=== PATIENT | male | born 1995 | race Caucasian/White ===

== ENCOUNTER → 2022-10-07 16:57 | Outpatient (CLI) | payer OTHER, SELFPAY ==
--- NOTE | ~2022-10-07 | XR_ITS ---
EXAMINATION: XR thoracic spine 2V DATE: 10/07/2022 17:55 INDICATION: Thoracic spine pain. TECHNIQUE: 2 views of thoracic spine were obtained. COMPARISON: None. FINDINGS: There is 7 degrees dextrocurvature of thoracic spine. There is mild height loss of T6, T9, and T10 vertebral bodies. There is mildly decreased disc height at T5-T6. There are endplate osteophy marina at multiple levels. IMPRESSION: 1. Mild thoracic spondylosis. 2. Mild age-indeterminate compression fractures of T6, T9, and T10 vertebral bodies. Reviewed, dictated and finalized at location A. IMPRESSION: 1. Mild thoracic spondylosis. 2. Mild age-indeterminate compression fractures of T6, T9, and T10 vertebral lori dies.
== END ==
DX: S22.009A Unspecified fracture of unspecified thoracic vertebra, initial encounter for closed fracture (principal); X58.XXXA Exposure to other specified factors, initial encounter
CPT/HCPCS: 72070

== ENCOUNTER 2024-01-15 18:31 | Emergency (ER) | payer OTHER, SELFPAY ==
--- NOTE | 2024-01-15 18:40 | ED.NAVMDI ---
HPI - Nausea/Vomiting/Diarrhea General Chief complaint: Nausea/Vomiting/Diarrhea Stated complaint: Stomach Pains and Vomiting Time Seen by Provider: 01/15/24 18:41 Source: patient Mode of arrival: ambulatory Limitations: no limitations History of Present Illness HPI Narrative: 28-year-old male presents with complaint of intermittent nausea vomiting for the past 2-3 weeks. Patient states he will be fine for a couple days and then all the sudden vomiting again. Has had decreased appetite, has barely a any solid foods for the past 2-3 weeks. Patient reports over the past several days he has had decreased urination. Worsening of nausea and vomiting. Today was vomiting and felt sudden pain to epigastric region. Has had constant pain since. also reports constipation. The only time he is able to have a bowel movement is after taking Dulcolax. Patient is pale. All systems reviewed and negative except as noted above. Related Data Home Medications Medication Instructions Recorded Confirmed lacosamide 200 mg tablet 30 mg PO BID 01/15/24 01/15/24 Allergies Allergy/AdvReac Type Severity Reaction Status Date / Time No Known Allergies Allergy Verified 01/15/24 18:41 Review of Systems Review of Systems: CONSTITUTIONAL: Denies fever, chills, or sweats. Reports fatigue. EYES: Denies visual changes, redness, or discharge. ENT: Denies rhinorrhea, congestion, sore throat, or otalgia. CARDIOVASCULAR: Denies chest pain, palpitations, or edema. RESPIRATORY: Denies cough or dyspnea. GASTROINTESTINAL: Reports epigastric abdominal pain, nausea, vomiting, and constipation GENITOURINARY: Denies dysuria or hematuria. reports decreased urination. SKIN: Denies rash or itching. MUSCULOSKELETAL: Denies back pain, joint pain, or myalgia. NEUROLOGIC: Denies headache, numbness, or weakness. PSYCHIATRIC: Denies anxiety or depression. All other systems reviewed are negative, except as documented in HPI. [facility] Comments At time of signature, agree with nursing past medical, surgical, social and family history. There is no relevant family history pertinent to the presenting complaint. Exam Narrative: GENERAL: patient is ill-appearing, pale, shaky, dark circles under eyes HEAD: normocephalic, atraumatic. EYES: PERRL. Sclera clear/white. Vision is grossly intact. EARS: External ears normal NOSE: External nose normal NECK: Neck supple, non-tender without lymphadenopathy, masses or thyromegaly. CARDIOVASCULAR: Regular rate and rhythm without murmurs, gallops, or rubs. RESPIRATORY: Clear to auscultation. Breath sounds equal bilaterally. No wheezes, rales, or rhonchi. GASTROINTESTINAL: mild distension, epigastric abdominal tenderness on palpation. Bowel sounds are hyperactive. SKIN: warm, Dry, intact with no suspicious lesions or rash, good texture and turgor. NEURO: awake, alert, and oriented to person, place and time. There were no obvious focal neurologic abnormalities. EXTREMITIES: No joint tenderness, effusion, or edema noted. Course Course Level of Care: Express Care Visit Vital Signs Vital signs: Reviewed Transfer Transfered to: [facility] Transportation: Other ( significant other) Transfer rationale: transferring patient to ER for CT scan, labs, IV hydration due to multiple weeks of nausea vomiting, constipation, epigastric tenderness today. Accepting physician: Dr. White Discharge Plan Discharge Clinical Impression: Acute epigastric pain, Nausea & vomiting, Constipation Patient Disposition: Acute Care Hospital Condition: Stable Prescriptions: No Action lacosamide 200 mg tablet 30 mg PO BID Follow-up/Referrals: Violeta Gordon APRN [Primary Care Provider] - Time of Disposition: 18:55
[2024-01-15 18:41] VITALS: BP 112/84; PULSE 126; RESP 16; TEMP 36.8; O2SAT 100
== END 2024-01-15 19:10 | disposition short-term general hospital (02) ==
PROVIDERS: Emergency Provider Nurse Practitioner Family; PCP Nurse Practitioner Family
DX: R10.13 Epigastric pain (principal); R11.2 Nausea with vomiting, unspecified; K59.00 Constipation, unspecified; G40.909 Epilepsy, unspecified, not intractable, without status epilepticus
CPT/HCPCS: 99212; 99215; G0463

== ENCOUNTER 2024-01-15 19:09 | Emergency (ER) | payer OTHER, SELFPAY ==
--- NOTE | ~2024-01-15 | CT_ITS ---
EXAMINATION: CT abdomen pelvis w con DATE: 01/15/2024 21:59 INDICATION: Intermittent abdominal pain. TECHNIQUE: Computed tomography (CT) of the abdomen and pelvis was performed with 100 mL Omnipaque 350 intravenous contrast. Automated exposure control and iterative reconstruction technique were employe d. The dose-length product was 196.40 mGy-cm. COMPARISON: None. FINDINGS: The visualized portions of the lung bases are clear without pneumonia or pleural effusion. The heart size is normal. No pericardial effusion. There is diffuse hepatic steatosis. The gallbladde r is normal in size. The spleen is normal. There is fat stranding and free fluid around the pancreas, consistent with acute interstitial pancreatitis. The adrenal glands and kidneys are normal. There ar e no dilated loops of bowel. The appendix is not visualized. There is a small volume of ascites. Ther e are no pathologically enlarged lymph nodes. The bones are unremarkable. IMPRESSION: 1. Acute interstitial pancreatitis. 2. Small volume of ascites. 3. Diffuse hepatic steatosis. Reviewed, dictated and finalized at location E.
[2024-01-15 19:10] VITALS: BP 125/88; PULSE 115; RESP 17; TEMP 36.3; O2SAT 97
[2024-01-15 19:26] LABS: Basophils Percent Auto 0.1 % (0.2-1.2); Hematocrit 44.5 % (42.0-52.0); Hemoglobin 16.4 g/dL (14.0-18.0); Immature Granulocyte Absolute 0.05 K/mm3 (0.00-0.031); Immature Granulocyte Percent A 0.4 % (0-0.5); Lymphocytes Absolute Auto 1.17 K/mm3 (0.9-3.2); Lymphocytes Percent Auto 8.7 % (18.3-44.2); Mean Corpuscular HGB Conc 36.9 g/dl (32-36); Mean Corpuscular Hemoglobin 33.3 pg (26-34); Mean Corpuscular Volume 90.3 fl (80-100); Mean Platelet Volume 8.9 fl (7.4-10.4); Monocytes Absolute Auto 1.3 K/mm3 (0.1-0.6); Monocytes Percent Auto 9.7 % (2.6-8.5); Neutrophils Absolute Auto 10.9 K/mm3 (1.3-6.7); Neutrophils Percent Auto 81.1 % (45.5-73.1); Platelet Count Result 209 k/mm3 (150-375); Red Blood Count 4.93 M/mm3 (4.6-6.20); Red Cell Distribution Width 11.9 % (11.5-14.5); White Blood Count 13.4 K/mm3 (4.5-10.0)
[2024-01-15 20:25] LABS: Alanine Aminotransferase 53 U/L (6-50); Albumin Level 4.8 g/dL (3.5-5.1); Alkaline Phosphatase 100 U/L (38-126); Anion Gap 21 mmol/L (4-12); Aspartate Amino Transferase 130 U/L (17-59); Bilirubin,Total 1.6 mg/dL (0.2-1.3); Blood Urea Nitrogen 6 mg/dL (9-20); Calcium 8.6 mg/dL (8.4-10.2); Carbon Dioxide 18 mmol/L (22-30); Chloride 98 mmol/L (98-107); Estimated CRCL calculation 118 ml/min; Estimated Glomerular Filt Rate > 60; Glucose 175 mg/dL (65-110); Potassium 3.8 mmol/L (3.4-5.0); Sodium 137 mmol/L (137-145)
[2024-01-15 20:37] LABS: Lipase 9047 U/L (23-300)
--- NOTE | 2024-01-15 21:13 | ED.ABDPAIN ---
HPI - Abdominal Pain General Chief Complaint: Abdominal Pain Stated Complaint: epigastric pain, n/v Time Seen by Provider: 01/15/24 21:01 Source: patient Mode of arrival: ambulatory Limitations: no limitations History of Present Illness HPI narrative: This is a 28-year-old male who presents to the ED with chief complaint of epigastric abdominal pain for the past couple of weeks and significantly worse today. Reports primarily having nausea and vomiting over the past couple weeks but the pain really got bad today. Reports pain is mainly in the epigastrium but somewhat generalized in nature. Endorses multiple episodes of vomiting today. Only medical history is seizure disorder for which he takes lacosamide. Unsure fevers. Denies diarrhea, abdominal surgical history. Denies chest pain, shortness of breath, cough. States he drinks on occasion but is not really a heavy drinker. Has not tried any new medications recently. Related Data Home Medications Medication Instructions Recorded Confirmed lacosamide 200 mg tablet 30 mg PO BID 01/15/24 01/15/24 Allergies Allergy/AdvReac Type Severity Reaction Status Date / Time No Known Allergies Allergy Verified 01/15/24 18:41 Review of Systems Review of Systems: All systems as dictated in HPI Exam Narrative: GENERAL: Well-appearing, well-nourished, and in no acute distress. HEAD: Normocephalic, atraumatic. EYES: PERRLA and EOMI. ENT: Nares clear, no rhinorrhea or epistaxis. Mucous membranes moist. Oropharynx without tonsillar hypertrophy exudate or other lesions. NECK: Supple. No adenopathy or masses. CHEST: No respiratory distress. Clear to auscultation. No wheezes rales or rhonchi HEART: Regular rate and rhythm. No murmur heard. Normal peripheral pulses. ABDOMEN: Epigastric tenderness present. Soft, nondistended, normal active bowel sounds. MSK: Normal range of motion. No edema. SKIN: Warm, dry, no rash. NEURO: Alert and oriented x4. No focal deficits. PSYCH: Normal mood and affect. Course Vital Signs Vital signs: Vital Signs Temperature 97.4 F L 01/15/24 19:10 Pulse Rate 115 H 01/15/24 19:10 Respiratory Rate 17 01/15/24 19:10 Blood Pressure 125/88 01/15/24 19:10 Pulse Oximetry 97 01/15/24 19:10 Oxygen Delivery Room Air 01/15/24 19:10 Temperature 97.4 F L 01/15/24 19:10 Pulse Rate 118 H 01/15/24 23:41 Respiratory Rate 20 01/15/24 23:41 Blood Pressure 150/116 H 01/15/24 23:41 Pulse Oximetry 98 01/15/24 23:41 Oxygen Delivery Room Air 01/15/24 19:10 MDM - Abdominal Pain MDM Narrative Medical decision making narrative: this is a 28-year-old male who presents to the ED with chief complaint of epigastric pain, nausea, vomiting. Vitals show initial tachycardia in the 110's-120's. exam is remarkable for the above. He is uncomfortable. Lab work showing initial white count 13.4. Lipase markedly elevated at 9047 indicating acute pancreatitis today. He has never had pancreatitis before. Lactic acid initially 6.9. Lactic acid reflux at 5.0 after several L of fluids. he does have metabolic acidosis with an anion gap elevation. Total bilirubin is 1.8. Direct bilirubin is 0. Alk-phos is normal. CT abdomen and pelvis with IV contrast: IMPRESSION: 1. Acute interstitial pancreatitis. 2. Small volume of ascites. 3. Diffuse hepatic steatosis.. Overall it is unclear if this is a pancreatitis caused by gallstones but seems to be the most likely etiology at this time. Low suspicion of alcoholic pancreatitis. Triglycerides are normal. His history is possibly concurrent with gallbladder disease intermittent over the past couple of weeks. Discussed the case with hospitalist who would recommend transfer to facility with GI on board. Consult [facility]. Dr. Polanco has accepted the patient. Patient is understanding agreeable with plan for transfer at this time. [facility]
[2024-01-15] MEDS: MORPHINE SULFATE (*CRX) 4 MG/ML INJ IV PUSH (21:28)
[2024-01-15] MEDS: SODIUM CHLORIDE 0.9% IV 1,000 ML 999 ML IV CONT ×3 (21:28→23:11)
[2024-01-15] MEDS: ONDANSETRON INJ 4 MG/2 ML VIAL IV PUSH (21:29)
[2024-01-15 22:00] LABS: Alanine Aminotransferase 53 U/L (6-50); Albumin Level 4.8 g/dL (3.5-5.1); Alkaline Phosphatase 104 U/L (38-126); Aspartate Amino Transferase 132 U/L (17-59); Bilirubin,Total 1.8 mg/dL (0.2-1.3); Triglycerides 109 mg/dL (<150)
[2024-01-15 22:08] LABS: Lactic Acid Reflex 6.9 mmol/L (0.7-2.0)
[2024-01-15] MEDS: HYDROmorphone HCL INJ (*CRX) 1 MG/ML SYR 0.5 MG IV PUSH (23:17)
[2024-01-15 23:41] VITALS: BP 150/116; PULSE 118; RESP 20; O2SAT 98
[2024-01-16] MEDS: SODIUM CHLORIDE 0.9% IV 1,000 ML 999 ML IV CONT (00:05)
[2024-01-16] MEDS: HYDROmorphone HCL INJ (*CRX) 1 MG/ML SYR 0.5 MG IV PUSH ×4 (00:12→06:11)
--- NOTE | 2024-01-16 00:38 | ECG_ITS ---
Test Date: 2024-01-16 01:05:43 Measurements Intervals [place] Rate: 120 P: 29 AL: 144 QRS: 8 QRSD: 97 T: 64 QT: 339 QTc: 479 Interpretive Statements SINUS TACHYCARDIA NONSPECIFIC T-WAVE ABNORMALITY BORDERLINE ECG No previous ECG available for comparison Electronically Signed On 01-16-2024 08:45:10 CDT by Manolo Negrete M.D.
[2024-01-16 00:45] LABS: Reflex Lactic Acid Yes or No Add Lactic
[2024-01-16] MEDS: ONDANSETRON INJ 4 MG/2 ML VIAL IV PUSH ×3 (01:00→06:50)
[2024-01-16] MEDS: LACTATED RINGERS 1,000 ML 250 ML IV CONT (01:50)
--- NOTE | 2024-01-16 01:51 | PC.NURSE ---
Report to Helen at [facility].
[2024-01-16] MEDS: METOCLOPRAMIDE HCL INJ 10 MG/2 ML VIAL IV PUSH (02:32)
[2024-01-16 02:53] VITALS: BP 183/125; PULSE 118; RESP 30; O2SAT 96
--- NOTE | 2024-01-16 03:44 | PC.NURSE ---
pt called vocational aide light requesting more pain medication. Hill was notified and given me the okay to give another dose of 05mg of dilaudid to pt at this time.
[2024-01-16 05:40] VITALS: BP 145/108; PULSE 111; RESP 23; O2SAT 95
[2024-01-16 06:31] LABS: Appearance Urine Clear (Clear); Bacteria Urine None Seen /hpf; Bilirubin Urine Negative (Negative); Blood Urine 1+ (Negative); Color Urine Yellow (Yellow); Glucose Urine UA Trace mg/dL (Negative); Ketones Urine 1+ mg/dL (Negative); Leukocyte Esterase Ur Negative LEU/UL (Negative); Nitrate Urine Negative (Negative); Non Pathogenic Casts 0-2; Protein Urine 1+ mg/dL (Negative); RBC Urine 0-2 /hpf (0-2); Squamous Epithelial Cell Urine None Seen /hpf (Few); Urobilinogen Urine 0.2 mg/dL (<2.0); WBC Urine 0-5 /hpf (0-3)
[2024-01-16 06:49] LABS: Specific Grav Ur 1.064 (1.001-1.035)
[2024-01-16 06:50] LABS: Add Urine Microscopic? YES
== END 2024-01-16 07:20 | disposition short-term general hospital (02) ==
PROVIDERS: Emergency Medicine; Emergency Provider Physician Assistant
DX: K85.90 Acute pancreatitis without necrosis or infection, unspecified (principal); K85.80 Other acute pancreatitis without necrosis or infection; K76.0 Fatty (change of) liver, not elsewhere classified; R18.8 Other ascites; R94.31 Abnormal electrocardiogram [ECG] [EKG]; R00.0 Tachycardia, unspecified
CPT/HCPCS: 36415; 74177; 80053; 80076; 81001; 83605; 83690; 84478; 85025; 93005; 96361; 96374; 96375; 96376; 99212; 99215; 99285; G0463; J1170; J2270; J2405; J2765; J7030; J7120; Q9967

== ENCOUNTER 2025-03-31 11:39 | Emergency (ER) | payer OTHER, SELFPAY ==
--- OUTSIDE RECORDS SUMMARY | 2017-07-21 08:30 | XMS_ITS | Continuity of Care Document ---
Author Organization [facility] Address [address] [address] Care Team Providers Care Furniture Decals Inspector Name Role Phone Unavailable Unavailable Unavailable Procedures Procedure Date EST PT, LIMITED VISIT ELECTROCARDIOGRAM, COMPLETE EST PT, LOW VISIT ELECTROCARDIOGRAM, COMPLETE ECHO FOR CONGENITAL ANOMALIES; COMPLETE DOPPLER ECHO EXAM; COMPLETE COLOR FLOW VELOCITY MAPPING Advance Directives Directive Yes / No Effective Date File Name No Information Encounters Encounter Description Practice Location Reason(s) For Visit Diagnoses Date Provider Providers Copied on Encounter [facility], [facility] [facility], [id number], [facility] No Information 7 No Information Referring Provider: RUBEN Avelar [address] [place] [address] 209, [place], [place], . tel:[phone] EST PT, LIMITED VISIT [facility], [address] [place] [address], [id number], [facility] No Information 8 7 No Information Referring Provider: RUBEN Avelar [address] [place] [address], [place], [place], . tel:[phone] EST PT, LOW VISIT [facility], [address], [place], [id number], [facility] No Information 0 7 No Information Referring Provider: RUBEN Avelar [address] [place] [address] 209, [place], . tel:[phone] Family History Family Member Type Diagnosis Age At Onset No Information Payers Payer name Insurance type Covered democrat ID Authorzaydaa amaris(s) [facility] [id number] Social History Type Description Quantity Date Captured Comments Sex Male Smoking Status No Information Chief Complaint And Reason For Visit No Information History Of Present Illness Encounter Date Complaint History Of Prese nt Illness No Information Instructions Date Instruction Additional Infor mation No Information Assessments Type Assessment Date No Information
--- OUTSIDE RECORDS SUMMARY | 2017-07-21 08:30 | XMS_ITS | Continuity of Care Document ---
Author Organization [facility] Address [address] [address] Care Team Providers Care Representative Personal Service Name Role Phone Unavailable Unavailable Unavailable Procedures [...] Providers Copied on Encounter [facility], [facility] [address], [id number], [facility] No Information 7 No Information Referring Provider: RUBEN Avelar [address] [place] [address], [place], . tel:[phone] EST PT, LIMITED VISIT [facility], [address] [facility] [place] [address], [id number], [facility] No Information 8 7 No Information Referring Provider: RUBEN Avelar [address] [place] [address] 209, [place], . tel:[phone] EST PT, LOW VISIT [facility], [address] [facility], [place], [id number], [facility] No Information 0 7 No Information Referring Provider: RUBEN Avelar [address] [place] [address] 209, [place], . tel:[phone] Family History Family Member Type Diagnosis Age At Onset No Information Payers Payer name Insurance type Covered republican ID Authorzaydaa amaris(s) [facility] [id number] Social History Type Description Quantity Date Captured Comments Sex Male Smoking Status No Information Chief Complaint And Reason For Visit No Information History Of Present Illness Encounter Date Complaint History Of Prese nt Illness No Information Instructions Date Instruction Additional Infor mation No Information Assessments Type Assessment Date No Information
--- OUTSIDE RECORDS SUMMARY | 2021-07-15 08:25 | XMS_ITS | Continuity of Care Document ---
Author Organization [facility] Address [address] [facility] [place] [address] Phone Care Team Providers Care Lead Oxide Mill Tender Name Role Phone Unavailable Unavailable Unavailable Medications Medication Instructions Dosage Effective Dates (start - stop) Status Comments enalapril maleate 5 mg tablet take 1 and 1/2 tablet (7.5 mg) twice a day - Active atenolol 25 mg tablet take 1 tablet by o ral route every day 25 MG - Active Procedures Procedure Date ECHO FOR CONGENITAL ANOMALIES; COMPLETE DOPPLER ECHO EXAM; COMPLETE COLOR FLOW VELOCITY MAPPING EST PT, MODERATE VISIT ELECTROCARDIOGRAM, COMPLETE EST PT, MODERATE VISIT ECHO FOR CONGENITAL ANOMALIES; COMPLETE ELECTROCARDIOGRAM, COMPLETE DOPPLER ECHO EXAM; COMPLETE COLOR FLOW VELOCITY MAPPING EST PT, LOW VISIT COLOR FLOW VELOCITY MAPPING ECHO FOR CONGENITAL ANOMALIES; COMPLETE ELECTROCARDIOGRAM, COMPLETE DOPPLER ECHO EXAM; COMPLETE CV STRESS TEST; INTERP AND REPORT ONLY A ECHO, STRESS TEST PULMONARY STRESS TEST, COMPLEX Advance Directives Directive Yes / No Effective Date File Name No Information Encounters Encounter Description Practice Location Reason(s) For Visit Diagnoses Date Provider Providers Copied on Encounter [facility], [address] [facility], [place], [place], [id number], [place] tel:[phone] [facility] No Information Jun- 1 No Information EST PT, MODERATE VISIT [facility], [address] [place] [address], [id number], tel:[phone] [facility] Bicuspid aortic valveAortic dilationCongenit al Aortic Valve Insufficiency Feb- 1 No Information Referring Provider: RUBEN Avelar, [address] [place] [address] [address], [place], [place], . tel:[phone] EST PT, MODERATE VISIT [facility], [address] [place] [address], [id number], tel:[phone] [facility] Aortic Insufficiency, congenitalBicusp id Aortic ValveAortic dilation 0 No Information Referring Provider: JOHN Anders, [address], [place], [address]. tel:[phone] EST PT, LOW VISIT [facility], [address] [place] [address], [id number], tel:[phone] [facility] Aortic Insufficiency, congenitalBicusp id Aortic ValveAortic dilation 9 No Information Referring Provider: RUBEN Avelar, [address] [place] [address] [address], [place], [place], . tel:[phone] [facility], [address] [place] [address], [id number], tel:[phone] [place] Aortic Insufficiency, congenital 7 No Information Referring Provider: JOHN Anders, [address], [place], [address]. tel:[phone] Family History Family Member Type Diagnosis Age At Onset Problem No family history of Arrhyth bessie Problem No family history of Hyperte nsion Problem No family history of Prematu re CAD Problem No family history of Cardiom yopathy - hypertrophic Problem No family history of Cardiom yopathy - dilated Problem No family history of Diabete s Mellitus Problem No family history of Sudden Payers Payer name Insurance type Covered democrat ID Authorlora glez[facility] [id number] [place] [id number] Social History Type Description Quantity Date Captured Comments Sex Male Smoking Status No Information Chief Complaint And Reason For Visit No Information History Of Present Illness Encounter Date Complaint History Of Prese nt Illness No Information Instructions Date Instruction Additional Infor mation No Information Assessments Type Assessment Date No Information
--- OUTSIDE RECORDS SUMMARY | 2021-07-15 08:25 | XMS_ITS | Continuity of Care Document ---
Author Organization [facility] Address [address] [facility] [address] [place] [address] Phone Care Team Providers Care Field Support Technician Name Role Phone Unavailable Unavailable Unavailable Medications [...] Copied on Encounter [facility], [address], [place], [place], [id number], [place] tel:[phone] [facility] No Information Jun- 1 No Information EST PT, MODERATE VISIT [facility], [address] [place] [address], [id number], tel:[phone] [facility] Bicuspid aortic valveAortic dilationCongenit al Aortic Valve Insufficiency Feb- 1 No Information Referring Provider: RUBEN Avelar, [address] [place] [address] [address], [place], [place], . tel:[phone] EST PT, MODERATE VISIT [facility], [address] [place] [address], [id number], tel:[phone] [facility] Aortic Insufficiency, congenitalBicusp id Aortic ValveAortic dilation 0 No Information Referring Provider: JOHN Anders, [address] [facility], [place], [address]. tel:[phone] EST PT, LOW VISIT [facility], [address] [place] [address], [id number], tel:[phone] [facility] Aortic Insufficiency, congenitalBicusp id Aortic ValveAortic dilation 9 No Information Referring Provider: RUBEN Avelar, [address] [place] [address] [address], [place], [place], . tel:[phone] [facility], [address] [place] [address], [id number], tel:[phone] [place] Aortic Insufficiency, congenital 7 No Information Referring Provider: JOHN Anders, [address], [place], [address]. tel:[phone] Family History Family Member Type Diagnosis Age [...] Sudden Payers Payer name Insurance type Covered republican ID Authorlora glez(s) [facility] [id number] [place] [id number] Social History Type Description Quantity Date Captured Comments Sex Male Smoking Status No Information Chief Complaint And Reason For Visit No Information History Of Present Illness Encounter Date Complaint History Of Prese nt Illness No Information Instructions Date Instruction Additional Infor mation No Information Assessments Type Assessment Date No Information
[2025-03-31 11:40] VITALS: BP 116/65; PULSE 86; RESP 16; TEMP 36.4; O2SAT 100
--- OUTSIDE RECORDS SUMMARY | 2025-03-31 11:41 | XMS_ITS | Encounter Summary ---
Author Organization [facility] Address [address] [place] [address] Phone Care Team Providers Care Purchasing Intern Name Role Phone Sisi Savage MD Primary Care Provider [phone] Encounter Details Date Type Department Care Team (Late st Contact Info) Description 04/24/2022 Procedure Pass [facility] [address] [place] [address] Social History Tobacco Use Types Packs/Day Years Used Date Smoking Tobacco: Former Smokeless Tobacco: Never Alcohol Use Standard Drinks/Week Comments Yes 0 (1 standard drink = 0.6 oz pur e alcohol) Sex and Gender Information Value Date Recorded Sex Assigned at Not on file Legal Sex Male 10:20 AM EDT Gender Identity Not on file Sexual Orientation Not on file documented as of this encounter Functional Status * Are you deaf or do you have serious difficulty hearing? Answer Date of Assessment Author No 04/24/2022 11:22 AM EDT Chun Kern * Are you blind or do you have serious difficulty seeing, even when wearing glasses? Answer Date of Assessment Author No 04/24/2022 11:22 AM EDT Chun Kern * Do you have serious difficulty walking or climbing stairs? (5 years old or older) Answer Date of Assessment Author No 04/24/2022 11:22 AM EDT Chun Kern documented as of this encounter Plan of Treatment Not on file documented as of this encounter Visit Diagnoses Not on filedocumented in this encounter Care Teams Purchasing Intern Relationship Specialty Start Date End Date Sisi Savage MD PCP - General 01/15/20 documented as of this encounter
--- OUTSIDE RECORDS SUMMARY | 2025-03-31 11:41 | XMS_ITS | Encounter Summary ---
Author Organization [facility] Address [address] [place] [address] Phone Care Team Providers Care Dock Builder Name Role Phone Sisi Savage MD Primary Care Provider [phone] Encounter Details Date Type Department Care Team (Late st Contact Info) Description 07/09/2021 Ancillary Orders [facility] MRI [address] [facility] [place] [address] Bonnie Sanchez MD [address] [facility] [address] [place] [address] Social History Tobacco Use Types Packs/Day Years Used Date Smoking Tobacco: Former Alcohol Use Standard Drinks/Week Comments Yes 0 (1 standard drink = 0.6 oz pur e alcohol) Sex and Gender Information Value Date Recorded Sex Assigned at Not on file Legal Sex Male 10:20 AM EDT Gender Identity Not on file Sexual Orientation Not on file documented as of this encounter Plan of Treatment Not on file documented as of this encounter Visit Diagnoses Not on filedocumented in this encounter Care Teams Dock Builder Relationship Specialty Start Date End Date Sisi Savage MD PCP - General 01/15/20 documented as of this encounter
--- OUTSIDE RECORDS SUMMARY | 2025-03-31 11:41 | XMS_ITS | Encounter Summary ---
Author Organization [facility] and [facility] Address [address] [place] [address] Phone Care Team Providers Care Sccm Administrator Name Role Phone Sisi Savage MD Primary Care Provider [phone] Reason for Referral * MRI/CAT Scan (Routine) - Closed Specialty Diagnoses / Procedures Referred By Contac t Referred To Contact Radiology Diagnoses Congenital insufficiency of aortic valve Procedures MRI Cardiac Mrph + Function WWO Contrast Bonnie Sanchez MD Phone: tel: fax: Referral ID Status Reason Start Date Expiration Date Visits Re quested Visits Authorized [id number] Closed 07/09/2021 01/05/2022 1 1 Encounter Details Date Type Department Care Team (Late st Contact Info) Description 07/09/2021 Ancillary Orders [facility] [address] [facility] [place] [address] Bonnie Sanchez MD [address] [facility] [address] [place] [address] Congenital insufficiency of aortic valve Social History Tobacco Use Types Packs/Day Years [...] as of this encounter Plan of Treatment Pending Results Name Type Priority Associated Diagnoses Date /Time MRI Cardiac Mrph + Function WWO Contrast Imaging Routine Congenital insufficiency of aortic valve 07/09/2021 9:51 PM EST Scheduled Orders Name Type Priority Associated Diagnoses Orde r Schedule MRI Cardiac Mrph + Function WWO Contrast Imaging Routine Congenital insufficiency of aortic valve 1 Occurrences starting 07/09/2021 until 07/09/2022 documented as of this encounter Visit Diagnoses Diagnosis Congenital insufficiency of aortic valve documented in this encounter Care Teams Sccm Administrator Relationship Specialty Start Date End Date Sisi Savage MD PCP - General 01/15/20 documented as of this encounter
--- OUTSIDE RECORDS SUMMARY | 2025-03-31 11:41 | XMS_ITS | Encounter Summary ---
Author Organization [facility] and [facility] Address [address] [place] [address] Phone Care Team Providers Care Director Of Communications Name Role Phone Sisi Savage MD Primary Care Provider [phone] Encounter Details Date Type Department Care Team (Late st Contact Info) Description 07/09/2021 Procedure Pass [facility] [address] [facility] [place] [address] Social History Tobacco Use Types Packs/Day Years [...] on filedocumented in this encounter Care Teams Director Of Communications Relationship Specialty Start Date End Date Sisi Savage MD PCP - General 01/15/20 documented as of this encounter
--- OUTSIDE RECORDS SUMMARY | 2025-03-31 11:41 | XMS_ITS | Clinical Summary ---
Author Organization [facility] Address [address] [place] [address] Phone Care Team Providers Care Education Department Chair Name Role Phone Unavailable Primary Care Provider Unavailabl e Allergies No known active allergies Medications lacosamide (VIMPAT) 200 mg tablet Take 200 mg by mouth 2 times daily. Active ENALAPRIL MALEATE ORAL Take 7.5 mg by mouth daily. Active HYDROmorphone (DILAUDID) 4 mg tabletIndicatio ns:Pancreatic pseudocyst Take 1 Tablet (4 mg) by mouth every 6 hours as needed for Pain, Break-Through. Max Daily Amount: 16 mg 20 Tablet 01/28/2024 3:00 PM CDT 4 Active sennosides (SENOKOT) 8.6 mg tablet Take 1 Tablet (8.6 mg) by mouth 2 times daily. 60 Tablet 1 01/28/2024 3:00 PM CDT 4 Active nicotine (NICODERM CQ) 21 mg/24 hr patch Apply 1 Patch to skin as directed daily. 30 Patch 4 Active naloxone (NARCAN) 4 mg/spray [place], Non-Aerosol EMERGENCY USE ONLY: Administer 1 spray (4 mg) in one nostril one time. May repeat in alternating nostrils every 2-3 min until responsive or EMS arrives. 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 Agitation 01/18/2024 Acute pancreatitis 01/16/2024 Seizure 01/16/2024 Encounters Date Type Department Care Team Description 01/23/2025 External Device Data [facility] ABSTRACTION Provider, Abstract 01/10/2025 External Device Data [facility] ABSTRACTION Provider, Abstract 01/09/2025 External Device Data [facility] ABSTRACTION Provider, Abstract from Last 3 Months Family History Medical History Relation Name Comments Gallbladder Stones Mother Pancreatic Disease Mother Valvular Heart Disease Mother Relation Name Status Comments Mother Social History Tobacco Use Types Packs/Day Years Used Date Smoking Tobacco: Former Passive Smoke Exposure: Never Smokeless Tobacco: Never Tobacco Cessation:Counseling Given: Not Answered Passive Exposure Comments:vaping Alcohol Use Standard Drinks/Week Comments Yes 36 (1 standard drink = 0.6 oz pu re alcohol) Feeling Safe Answer Date Recorded Are you in a relationship wi th someone who hurts you emotionally and/or physically? No 03/06/2024 Food Insecurity Answer Date Recorded Patient needs follow up regardin 11/28/2024 Transportation Needs Answer Date Record ed Patient needs follow up regardin 11/28/2024 Housing Stability Answer Date Recorded Social/Environmental Concerns No concerns Utility Needs Answer Date Recorded Patient needs follow up regardin 11/28/2024 Sex and Gender Information Value Date Recorded Sex Assigned at Not on file Legal Sex Male 1:44 AM CDT Gender Identity Not on file Sexual Orientation Not on file Last Filed Vital Signs Vital Sign Reading Time Taken Comments Blood Pressure 121/80 03/06/2024 9:49 AM CDT Pulse 79 03/06/2024 9:49 AM CDT Temperature 36.3 C (97.3 F) 03/06/2024 9:21 AM CDT Respiratory Rate 16 03/06/2024 9:49 AM CDT Oxygen Saturation 99% 03/06/2024 9:49 AM CDT Inhaled Oxygen Concentration - - Weight 53.7 kg (118 lb 6.4 oz) 03/06/2024 7:10 A M CDT Height 170.2 cm (5' 7) 03/06/2024 7:10 AM CDT Body Mass Index 18.54 03/06/2024 7:10 AM CDT Plan of Treatment Health Maintenance Due Date Last Done Comments DTAP/TDAP/TD VACCINES (1 - Tdap) 12/31/2015 HEPATITIS B VACCINES (1 of 3 - 19+ 3-dose series) 01/2016 HPV VACCINES (1 - 3-dose SCDM series) 12/31/2023 INFLUENZA VACCINE (#1) 2025 05/26/2019 Medical Devices Implanted Type Area Jewelry Casting Model Maker Device Identifier Shelf Expiration Date Model / Serial / Lot Stent Axios 15mm Lumen [id number] - [id number] Implanted:Qty: 1 on 01/25/2024 by Arthur Mandujano MD at [facility] Stent [place] [employer] GRACIELA [id number] 11/07/2025 [id number] / / [id number] Insurance [employer] RX [employer] Commercial RX [employer] Commercial Advance Directives For more information, please contact: [phone] * Full Code (Latest Code Status on File) Date Activated Date Inactivated Comments 03/06/2024 7:01 AM 03/06/2024 12:30 PM * Full Code Date Activated Date Inactivated Comments 01/16/2024 10:16 AM 01/28/2024 5:09 PM
--- OUTSIDE RECORDS SUMMARY | 2025-03-31 11:41 | XMS_ITS | Encounter Summary ---
Author Organization [facility] Address [address] [place] [address] Phone Care Team Providers Care Quality Control Checker Name Role Phone Sisi Savage MD Primary Care Provider [phone] Encounter Details Date Type Department Care Team (Late st Contact Info) Description 07/09/2021 Procedure Pass [facility] [address] [facility] [place] [address] Social History Tobacco Use Types Packs/Day Years [...] on filedocumented in this encounter Care Teams Quality Control Checker Relationship Specialty Start Date End Date Sisi Savage MD PCP - General 01/15/20 documented as of this encounter
--- OUTSIDE RECORDS SUMMARY | 2025-03-31 11:41 | XMS_ITS | Clinical Summary ---
Author Organization [facility] Address [address] [facility] [place] [address] Care Team Providers Care Director Of Rehabilitation Name Role Phone Pcp, No Primary Care Provider Unavailabl e Allergies No known active allergies Medications ENALAPRIL MALEATE ORAL Take by mouth Active Active Problems Problem Noted Date Diagnosed Date Encounter for HCV screening test for high risk p atient 10/31/2018 Family History Medical History Relation Name Comments Healthy Father Healthy Mother Heart Disease Mother Breast Disease Paternal Grandmother Relation Name Status Comments Father Alive Mother Alive Paternal Grandmother Social History Tobacco Use Types Packs/Day Years Used Date Smoking Tobacco: Never Smokeless Tobacco: Never Alcohol Use Standard Drinks/Week Comments Yes 0 (1 standard drink = 0.6 oz pur e alcohol) Sex and Gender Information Value Date Recorded Sex Assigned at Not on file Legal Sex Male 9:44 AM EDT Gender Identity Not on file Sexual Orientation Not on file Last Filed Vital Signs Vital Sign Reading Time Taken Comments Blood Pressure 124/77 11/15/2018 3:04 PM EDT Pulse 60 11/15/2018 3:04 PM EDT Temperature 37.2 C (98.9 F) 11/15/2018 3:04 PM EDT Respiratory Rate 16 11/15/2018 3:04 PM EDT Oxygen Saturation 98% 11/15/2018 3:04 PM EDT Inhaled Oxygen Concentration - - Weight 58.1 kg (128 lb) 11/15/2018 3:04 PM EDT Height 170.2 cm (5' 7) 11/15/2018 3:04 PM EDT Body Mass Index 20.05 11/15/2018 3:04 PM EDT Plan of Treatment Health Maintenance Due Date Last Done Comments NonMedicare Preventative Exam 1996 Adult Tdap-Td (1 - Tdap) 12/31/2015 Hepatitis B Vaccine (1 of 3 - 19+ 3-dose series) 12/30 Depression Screening 11/01/2019 10/31/2018 Covid-19 Vaccine (1 - 2023- season) 2024 [facility] [employer] DRUM STENCILER Capture Hidden 02/23/2025 Influenza Vaccine (#1) 2025 HIV Screening Completed 10/31/2018 Hepatitis C screening Completed 10/31/2018 HPV Vaccine (Optional 27-45 Years) (No Doses Required) Completed Procedures Procedure Name Priority Date/Time Associated Diagnosis Comments HIV1/HIV2 SCREEN, COMBINED ANTIGEN AND ANTIBODY Routine 10/31/2018 10:18 AM EDT Palpitations Anxiousness Encounter for HCV screening test for high risk patient HEPATITIS C ANTIBODY SCREEN WITH REFLEX TO HCV PCR Routine 10/31/2018 10:18 AM EDT Palpitations Anxiousness Encounter for HCV screening test for high risk patient from Last 3 Months or Most Recently Relevant to Health Maintenance Results * HIV1/HIV2 SCREEN, COMBINED ANTIGEN AND ANTIBODY (10/31/2018 10:18 AM EDT) HIV SCREEN, COMBINED ANTIGEN & ANTIBODY Negative Negative 10/31/2018 4:16 PM EDT [facility] Comment: Call the laboratory for assistance in cases with discordance between screen & confirmation Note: for patients <2 yrs of age, it is recommended that an HIV-1 Proviral DNA by PCR be ordered to rule out the presence of HIV1/2 antigen or antibody from maternal origin. Blood BLOOD SPECIMEN / Unknown Venipuncture / Unknown 10/31/2018 10:18 AM EDT 10/31/2018 2:21 PM EDT Violeta Carbajal PA-C LAB-CHEMISTRY ORDERAB LES Final Result [facility] [place] [id number] * HEPATITIS C ANTIBODY SCREEN WITH REFLEX TO HCV PCR (10/31/2018 10:18 AM EDT) HCV ANTIBODY QUALITATIVE Negative Negative 10/31/2018 4:11 PM EDT [facility] Comment: CMIA Method by Director Social Welfare Blood BLOOD SPECIMEN / Unknown Venipuncture / Unknown 10/31/2018 10:18 AM EDT 10/31/2018 2:20 PM EDT Violeta Carbajal PA-C LAB-IMMUNOLOGY ORDERA BLES Final Result [facility] [place] [id number] from Last 3 Months or Most Recently Relevant to Health Maintenance Insurance [facility] Care Teams Director Of Rehabilitation Relationship Specialty Start Date End Date Pcp, No PCP - General 10/31/18
--- OUTSIDE RECORDS SUMMARY | 2025-03-31 11:41 | XMS_ITS ---
Author Name [facility] Organization Unknown Care Team Organization Name Specialty Phone Email Start Date End [facility] 11/24/2023
--- OUTSIDE RECORDS SUMMARY | 2025-03-31 11:41 | XMS_ITS | Encounter Summary ---
Author Organization [facility] Address [address] [place] [address] Phone Care Team Providers Care Military Administrative Technician Name Role Phone Sisi Savage MD Primary Care Provider [phone] Reason for Referral * MRI/CAT Scan (Routine) - Closed Specialty Diagnoses / Procedures Referred By Contac t Referred To Contact Radiology Diagnoses Congenital insufficiency of aortic valve Procedures MRA Chest W WO Contrast Bonnie Carter MD Phone: tel: fax: Referral ID Status Reason Start Date Expiration Date Visits Re quested Visits Authorized [id number] Closed 07/09/2021 01/05/2022 1 1 Encounter Details Date Type Department Care Team (Late st Contact Info) Description 07/09/[address] [facility] [address] [facility] [place] [address] Bonnie Carter MD [address] [facility] [address] [place], [place] [id number] Congenital insufficiency of aortic valve Social History [...] on file documented as of this encounter Results * MRA Chest W WO Contrast (07/09/2021 9:51 PM EST) Anatomical Region Laterality Modality Chest, Vascular Magnetic Resonan ce 07/09/2021 4:00 PM EST Impressions 07/11/2021 10:03 AM EST 1. Dilated aortic root and ascending aorta, both measuring up to 39 mm. 2. Functionally bicuspid aortic valve with moderate insufficiency. No aortic stenosis. 3. Mild left ventricular dilatation with normal systolic function. Electronically signed by: Vignesh Luque M.D. [Interpreted at: [facility]] [facility] KK: 07/11/21 Narrative 07/11/2021 10:03 AM EST [facility]IR HILARIO EXAM PERFORMED AT: [id number] :1995 [address] [facility] [address] [facility] F[address] 07/09/2021 AGE:25 Gender:M Physicians Only: [phone] BONNIE CARTER MD [F] [address] [facility] [address] [place] [address] MRI CARDIAC MRA CHEST WITHOUT AND WITH CONT W FLOW MAPPING ADDENDED BY: Vignesh Luque M.D. 07/17/21 ADDENDUM #1 TO REPORT OF 07/09/21 The aortic regurgitant fraction is 35%. ORIGINAL REPORT MRI CARDIAC MRA CHEST WITHOUT AND WITH CONT W FLOW MAPPING HISTORY: Bicuspid aortic valve, dilated aorta, asymptomatic COMPARISON: None available TECHNIQUE: In the horizontal long axis and short axis multi-phase FIESTA, and double inversion recovery images were performed. A short axis heavily T2 weighted scan was performed. In addition delayed-enhanced myocardial imaging was performed 10 minutes after gadolinium administration. Dedicated 4D flow imaging was performed. All flow calculations were performed by 4D flow imaging. 3-D gadolinium-enhanced MR angiogram was performed and 3-D images were rendered. Contrast: 15 cc GADAVIST administered. FINDINGS: AORTA: Relationship: Normal segmental anatomy S, D, S. Aortic arch: Normal branch pattern, left-sided arch, no evidence of stenosis. Aortic valve: Functionally bicuspid with fusion of the right and left cusps. Moderate aortic insufficiency. No aortic stenosis. Aortic flow 5.0 L/min, Peak velocity 154 cm/sec, Root 39 x 39 x 38 mm Asc Ao @ RPA 39 x 37 mm Transverse arch 22 x 21 mm Descending Ao 27 x 26 mm PULMONARY ARTERIES Main PA 29 x 26 mm MPA flow 5 L/min Right PA: 19 x 19 mm, No evidence of stenosis Flow 2.7 L/min , peak velocity 217 cm/sec, differential flow: 54 % Left PA: 21 x 18 mm, No evidence of stenosis Flow 2.3 L/min , peak velocity 220 cm/sec, differential flow: 46 % Pulmonary veins: Normal anatomic relationship with the left atrium Systemic veins: Right-sided SVC draining into the right atrium. IVC drains into the right atrium. Morphology: There is mild left ventricular dilatation. The atria are normal in size. The left ventricular wall thickness is within normal limits. Left Ventricular end-diastolic diameter: 4.7 cm Right Ventricular end-diastolic diameter: 3.9 cm Left ventricular end diastolic wall thickness:1.0 cm Wall Motion: No regional wall motion abnormalities. AV Canal: No mitral or tricuspid regurgitation. FUNCTION: LEFT VENTRICULAR FUNCTION. End-diastolic volume: 204 ml, index 120 ml/m2, normal range:(50-84 ml/m2) End-systolic volume: 84 ml, index 50 ml/m2, normal range: (17-37 ml/m2) Stroke-volume: 120 ml Ejection fraction: 59% Cardiac output: 7.3 L/min; 4.3 L/min/m2 RIGHT VENTRICULAR FUNCTION. End-diastolic volume: 154 ml, index 91 ml/m2, normal range: (62-88 ml/m2) End-systolic volume: 72 ml, index 42 ml/m2, normal range: (19-30 ml/m2) Stroke-volume: 82 ml, Ejection fraction: 53 % Procedure Note Vignesh Luque MD - 07/17/[address] [facility] MEIR HILARIO EXAM PERFORMED AT: [id number] :[address] FLR 07/09/2021 AGE:25 Gender:M Physicians Only:[phone] BONNIE CARTER MD [F] [address] [facility] [address] [place] [address] MRI CARDIAC MRA CHEST WITHOUT AND WITH CONT W FLOW MAPPING ADDENDED BY: Vignesh Luque M.D. 07/17/21 ADDENDUM #1 TO REPORT OF 07/09/21 The aortic regurgitant fraction is 35%. ORIGINAL REPORT MRI CARDIAC MRA CHEST WITHOUT AND WITH CONT W FLOW MAPPING HISTORY: Bicuspid aortic valve, dilated aorta, asymptomatic COMPARISON: None available TECHNIQUE: In the horizontal long axis and short axis multi-phaseFIESTA, and double inversion recovery images were performed. A short axisheavily T2 weighted scan was performed. In addition delayed-enhanced myocardial imaging was performed 10 minutes after gadolinium administration.Dedicated 4D flow imaging was performed. All flow calculations were performed by4D flow imaging. 3-D gadolinium-enhanced MR angiogram was performed and 3-D images were rendered. Contrast: 15 cc GADAVIST administered. FINDINGS: AORTA: Relationship: Normal segmental anatomy S, D, S. Aortic arch: Normal branch pattern, left-sided arch, no evidence of stenosis. Aortic valve: Functionally bicuspid with fusion of the right and left cusps. Moderate aortic insufficiency. No aortic stenosis. Aortic flow 5.0 L/min, Peak velocity 154 cm/sec, Root 39 x 39 x 38 mm Asc Ao @ RPA 39 x 37 mm Transverse arch 22 x 21 mm Descending Ao 27 x 26 mm PULMONARY ARTERIES Main PA 29 x 26 mm MPA flow 5 L/min Right PA: 19 x 19 mm, No evidence of stenosis Flow 2.7 L/min , peak velocity 217 cm/sec, differential flow: 54 % Left PA: 21 x 18 mm, No evidence of stenosis Flow 2.3 L/min , peak velocity 220 cm/sec, differential flow: 46 % Pulmonary veins: Normal anatomic relationship with the left atrium Systemic veins: Right-sided SVC draining into the right atrium. IVCdrains into the right atrium. Morphology: There is mild left ventricular dilatation. The atria arenormal in size. The left ventricular wall thickness is within normal limits. Left Ventricular end-diastolic diameter: 4.7 cm Right Ventricular end-diastolic diameter: 3.9 cm Left ventricular end diastolic wall thickness:1.0 cm Wall Motion: No regional wall motion abnormalities. AV Canal: No mitral or tricuspid regurgitation. FUNCTION: LEFT VENTRICULAR FUNCTION. End-diastolic volume: 204 ml, index 120 ml/m2, normal range:(50-84 ml/m2) End-systolic volume: 84 ml, index 50 ml/m2, normal range: (17-37 ml/m2) Stroke-volume: 120 ml Ejection fraction: 59% Cardiac output: 7.3 L/min; 4.3 L/min/m2 RIGHT VENTRICULAR FUNCTION. End-diastolic volume: 154 ml, index 91 ml/m2, normal range: (62-88 ml/m2) End-systolic volume: 72 ml, index 42 ml/m2, normal range: (19-30 ml/m2) Stroke-volume: 82 ml, Ejection fraction: 53 % IMPRESSION: 1. Dilated aortic root and ascending aorta, both measuring up to 39 mm. 2. Functionally bicuspid aortic valve with moderate insufficiency. No aortic stenosis. 3. Mild left ventricular dilatation with normal systolic function. Electronically signed by: Vignesh Luque M.D. [Interpreted at: [facility]] [facility] KK: 07/11/21 us Bonnie Carter MD IMG MRI ORDERABLES Edited Resul t - Final documented in this encounter Visit Diagnoses Diagnosis Congenital insufficiency of aortic valve Congenital insufficiency of aortic valve documented in this encounter Care Teams Military Administrative Technician Relationship Specialty Start Date End Date Sisi Savage MD PCP - General 01/15/20 documented as of this encounter
--- OUTSIDE RECORDS SUMMARY | 2025-03-31 11:41 | XMS_ITS | Clinical Summary ---
Author Organization [facility] and [facility] Address [address] [place] [address] Phone Care Team Providers Care Tier Lift Truck Operator Name Role Phone Sisi Savage MD Primary Care Provider [phone] Allergies No known active allergies Medications atenolol (TENORMIN) 25 MG tablet Take 25 mg by mouth daily 10/03/2020 Active enalapril (VASOTEC) 2.5 MG tablet Take 7.5 mg by mouth 2 (two) times daily Active Active Problems No known active problems Family History Medical History Relation Name Comments Other Mother surgery for dil ated aortic root and ascending aorta Relation Name Status Comments Mother Social History Tobacco Use Types Packs/Day Years Used Date Smoking Tobacco: Former Smokeless Tobacco: Never Tobacco Cessation:Counseling Given: Not Answered Alcohol Use Standard Drinks/Week Comments Yes 0 (1 standard drink = 0.6 oz pur e alcohol) Sex and Gender Information Value Date Recorded Sex Assigned at Not on file Legal Sex Male 10:20 AM EDT Gender Identity Not on file Sexual Orientation Not on file Last Filed Vital Signs Vital Sign Reading Time Taken Comments Blood Pressure 120/74 09/08/2022 2:36 PM EST Pulse 80 09/08/2022 2:36 PM EST Temperature 36.4 C (97.6 F) 04/24/2022 11:27 AM EDT Respiratory Rate 16 04/24/2022 1:56 PM EDT Oxygen Saturation 97% 04/24/2022 1:56 PM EDT Inhaled Oxygen Concentration - - Weight 56.7 kg (125 lb) 09/08/2022 2:36 PM EST Height 170.2 cm (5' 7) 09/08/2022 2:36 PM EST Body Mass Index 19.58 09/08/2022 2:36 PM EST Plan of Treatment Health Maintenance Due Date Last Done Comments COVID-19 Vaccine ( season) 2025, 11/16/2020 Insurance [facility] [id number] [facility] [id number] [facility] [id number] [facility] [id number] [facility] [id number] Care Teams Tier Lift Truck Operator Relationship Specialty Start Date End Date Sisi Savage MD PCP - General 01/15/20
--- NOTE | 2025-03-31 12:13 | ED.GENADULT ---
HPI - General Adult General Chief complaint: Recheck/Abnormal Lab/Rx Stated complaint: prescription refill Time Seen by Provider: 03/31/25 12:12 History of Present Illness HPI narrative: Patient is a 29-year-old gentleman presents emergency department with chief complaint of needs prescription refill. The patient is currently in residential treatment chest that and they were unable to get his prescription of his Vimpat the patient reports he takes 200 mg twice daily this was verified with the Mar from [facility]. The patient has no other complaints Related Data Home Medications ?Medication ?Instructions ?Recorded ?Confirmed ?Last Taken ?Type lacosamide 200 mg tablet 30 mg PO BID 01/15/24 01/15/24 Unknown History Allergies Allergy/AdvReac Type Severity Reaction Status Date / Time No Known Allergies Allergy Verified 03/31/25 12:14 Review of Systems Review of Systems: A 10 system review of systems was completed on the patient and is negative except for what is stated in the HPI. Nursing and ancillary documentation was reviewed. Exam Narrative: GENERAL: Well-appearing, well-nourished, and in no acute distress. HEAD: Normocephalic, atraumatic. EYES: PERRLA and EOMI. ENT: Nares clear, no rhinorrhea or epistaxis. Mucous membranes moist. NECK: Supple. CHEST: Clear to auscultation. No respiratory distress. HEART: Regular rate and rhythm. No murmur heard. Normal peripheral pulses. ABDOMEN: Soft, nontender, nondistended, normal active bowel sounds. EXTREMITIES: Normal range of motion. No edema. SKIN: Warm, dry, no rash. NEURO: No focal deficits. Alert and oriented x3. PSYCH: Normal mood and affect. Course Vital Signs Vital signs: Vital Signs Temperature 36.4 C 03/31/25 11:40 Pulse Rate 86 03/31/25 11:40 Respiratory Rate 16 03/31/25 11:40 Blood Pressure 116/65 03/31/25 11:40 Pulse Oximetry 100 03/31/25 11:40 Oxygen Delivery Room Air 03/31/25 11:40 Temperature 36.4 C 03/31/25 11:40 Pulse Rate 86 03/31/25 11:40 Respiratory Rate 16 03/31/25 11:40 Blood Pressure 116/65 03/31/25 11:40 Pulse Oximetry 100 03/31/25 11:40 Oxygen Delivery Room Air 03/31/25 11:40 Medical Decision Making MDM Narrative Medical decision making narrative: The patient is currently in residential treatment across the street the patient was given a prescription for one-month supply of his seizure medication Vital Signs Vital Signs: Vital Signs Temperature 36.4 C 03/31/25 11:40 Pulse Rate 86 03/31/25 11:40 Respiratory Rate 16 03/31/25 11:40 Blood Pressure 116/65 03/31/25 11:40 Pulse Oximetry 100 03/31/25 11:40 Oxygen Delivery Room Air 03/31/25 11:40 Temperature 36.4 C 03/31/25 11:40 Pulse Rate 86 03/31/25 11:40 Respiratory Rate 16 03/31/25 11:40 Blood Pressure 116/65 03/31/25 11:40 Pulse Oximetry 100 03/31/25 11:40 Oxygen Delivery Room Air 03/31/25 11:40 Discharge Plan Discharge Clinical Impression: Encounter for medication refill Patient Disposition: Home Condition: Stable Instructions: Antibiotic Form, Normal Exam (ED) Patient Language: Lebanese Prescriptions: New lacosamide [Vimpat] 200 mg tablet 200 mg PO Q12H Qty: 60 0RF lacosamide [Vimpat] 200 mg tablet 200 mg PO Q12H Qty: 60 0RF No Action lacosamide 200 mg tablet 30 mg PO BID Follow-up/Referrals: Roni Stewart MD [Physician, Family Practice] UNKNOWN,DOCTOR [Primary Care Provider] Time of Disposition: 12:18
--- OUTSIDE RECORDS SUMMARY | 2025-03-31 12:29 | XMS_ITS | Encounter Summary ---
Author Organization [facility] Address [address] [place] [address] Phone Care Team Providers Care Hotel Supplies Salesperson Name Role Phone Sisi Savage MD Primary Care Provider [phone] Reason for Referral * MRI/CAT Scan (Routine) - Closed Specialty Diagnoses / Procedures Referred By Contac t Referred To Contact Radiology Diagnoses Congenital insufficiency of aortic valve Procedures MRA Chest W WO Contrast Bonnie Carter MD Phone: tel: fax: Referral ID Status Reason Start Date Expiration Date Visits Re quested Visits Authorized [id number] Closed 07/09/2021 01/05/2022 1 1 Encounter Details Date Type Department Care Team (Late st Contact Info) Description 07/09/20[address] [facility] [address] [place] [address] Bonnie Carter MD [address] [facility] [address] [place], [place] [id number] Congenital insufficiency of aortic valve Social History [...] signed by: Vignesh Luque M.D. [Interpreted at: [facility]] [facility] KK: 07/11/21 Narrative 07/11/2021 10:03 AM EST [facility] CENTER MEIR HILARIO EXAM PERFORMED AT: [id number] :1995 [address] [facility] EMERGENCY DEPARTMENT YARON MCNEILL, [facility] FLR 07/09/2021 AGE:25 Gender:M Physicians Only: [phone] BONNIE CARTER MD [F] [address] [facility] [address] [place] [address] MRI CARDIAC MRA CHEST WITHOUT AND WITH [...] Procedure Note Vignesh Luque MD - 07/17/2021 [facility] RADIOLOGY [facility] CENTER MEIR HILARIO EXAM PERFORMED AT: [id number] :[address] FLR 07/09/2021 AGE:25 Gender:M Physicians Only:[phone] BONNIE CARTER MD [F] [address] [facility] [address] [place] [address] MRI CARDIAC MRA CHEST WITHOUT AND WITH [...] signed by: Vignesh Luque M.D. [Interpreted at: [facility]] [facility] KK: 07/11/21 us Bonnie Carter MD IMG MRI ORDERABLES Edited Resul t - Final documented in this encounter Visit Diagnoses Diagnosis Congenital insufficiency of aortic valve Congenital insufficiency of aortic valve documented in this encounter Care Teams Hotel Supplies Salesperson Relationship Specialty Start Date End Date Sisi Savage MD PCP - General 01/15/20 documented as of this encounter
--- OUTSIDE RECORDS SUMMARY | 2025-03-31 12:29 | XMS_ITS | Encounter Summary ---
Author Organization [employer] [facility] Address [address] [place] [address] Phone Care Team Providers Care Security Chief Museum Name Role Phone Sisi Savage MD Primary Care Provider [phone] Reason for Referral * MRI/CAT Scan (Routine) - Closed Specialty Diagnoses / Procedures Referred By Contac t Referred To Contact Radiology Diagnoses Congenital insufficiency of aortic valve Procedures MRI Cardiac Mrph + Function WWO Contrast Bonnie Sanchez MD Phone: tel: fax: Referral ID Status Reason Start Date Expiration Date Visits Re quested Visits Authorized [id number] Closed 07/09/2021 01/05/2022 1 1 Encounter Details Date Type Department Care Team (Late st Contact Info) Description 07/09/2021 Ancillary Orders [facility] [address] [place] [address] Bonnie Sanchez MD [address] [facility] [address] [place] [address] Congenital insufficiency of aortic valve Social History [...] valve documented in this encounter Care Teams Security Chief Museum Relationship Specialty Start Date End Date Sisi Savage MD PCP - General 01/15/20 documented as of this encounter
--- OUTSIDE RECORDS SUMMARY | 2025-03-31 12:29 | XMS_ITS | Clinical Summary ---
Author Organization [facility] Address [address] [place] [address] Care Team Providers Care Pattern Technician Name Role Phone Pcp, No Primary Care [...] 2023- season) 2024 [facility] [employer] MANUFACTURING ENGINEER ASSEMBLY Capture Hidden 02/23/2025 Influenza Vaccine (#1) 2025 [...] ANTIBODY Negative Negative 10/31/2018 4:16 PM EDT [facility] Comment: Call the laboratory for [...] Carbajal PA-C LAB-CHEMISTRY ORDERAB LES Final Result [facility] [place] [address] * HEPATITIS C ANTIBODY SCREEN WITH REFLEX TO HCV PCR (10/31/2018 10:18 AM EDT) HCV ANTIBODY QUALITATIVE Negative Negative 10/31/2018 4:11 PM EDT [facility] Comment: CMIA Method by Recreation Therapy Aides Teacher Blood BLOOD SPECIMEN / Unknown Venipuncture / Unknown 10/31/2018 10:18 AM EDT 10/31/2018 2:20 PM EDT Violeta Carbajal PA-C LAB-IMMUNOLOGY ORDERA BLES Final Result [facility] [place] [id number] from Last 3 Months or Most Recently Relevant to Health Maintenance Insurance [facility] Member Subscriber Plan / Payer (Ef fective for All Dates) Name:Manny Hilario Relation to Subscriber:Child Name:KEENA HILARIO Date of :1962 (Home) Address: [address] [place] [address] Payer ID:[id number] ([facility]) Type:Non Managed Care Address: [facility] [address] [place] [address] Care Teams Pattern Technician Relationship Specialty Start Date End Date Pcp, No PCP - General 10/31/18
--- OUTSIDE RECORDS SUMMARY | 2025-03-31 12:29 | XMS_ITS | Clinical Summary ---
Author Organization [facility] Address [address] [place] [address] Phone Care Team Providers Care Medical Secretary Teacher Name Role Phone Unavailable Primary Care Provider [...] Patch 4 Active naloxone (NARCAN) 4 mg/spray [place], Non-Aerosol EMERGENCY USE ONLY: Administer 1 spray [...] 2025 05/26/2019 Medical Devices Implanted Type Area Flavor Room Worker Device Identifier Shelf Expiration Date Model / Serial / Lot Stent Axios 15mm Lumen [id number] - [id number] Implanted:Qty: 1 on 01/25/2024 by Arthur Mandujano MD at [facility] Stent [place] [employer] GRACIELA [id number] 11/07/2025 [id number] / / [id number] Insurance [employer] Commercial RX [employer] Commercial Advance Directives For more information, please contact: [phone] * Full Code (Latest Code Status on File) Date Activated Date Inactivated Comments 03/06/2024 7:01 AM 03/06/2024 12:30 PM * Full Code Date Activated Date Inactivated Comments 01/16/2024 10:16 AM 01/28/2024 5:09 PM
--- OUTSIDE RECORDS SUMMARY | 2025-03-31 12:29 | XMS_ITS | Encounter Summary ---
Author Organization [employer] [facility] Address [address] [place] [address] Phone Care Team Providers Care Lining Stamper Name Role Phone Sisi Savage MD Primary Care Provider [phone] Encounter Details Date Type Department Care Team (Late st Contact Info) Description 04/24/2022 Procedure Pass [facility] [address] [place] [address] Social History Tobacco Use Types Packs/Day Years [...] on filedocumented in this encounter Care Teams Lining Stamper Relationship Specialty Start Date End Date Sisi Savage MD PCP - General 01/15/20 documented as of this encounter
--- OUTSIDE RECORDS SUMMARY | 2025-03-31 12:29 | XMS_ITS | Encounter Summary ---
Author Organization [employer] [facility] Address [address] [place] [address] Phone Care Team Providers Care Civil Preparedness Coordinator Name Role Phone Sisi Savage MD Primary Care Provider [phone] Encounter Details Date Type Department Care Team (Late st Contact Info) Description 07/09/2021 Procedure Pass [facility] [address] [place] [address] Social History Tobacco Use Types Packs/Day Years [...] on filedocumented in this encounter Care Teams Civil Preparedness Coordinator Relationship Specialty Start Date End Date Sisi Savage MD PCP - General 01/15/20 documented as of this encounter
--- OUTSIDE RECORDS SUMMARY | 2025-03-31 12:29 | XMS_ITS | Clinical Summary ---
Author Organization [employer] [facility] Address [address] [place] [address] Phone Care Team Providers Care Belt Glass Sander Name Role Phone Sisi Savage MD Primary Care Provider [phone] Allergies No known active allergies Medications atenolol [...] COVID-19 Vaccine ( season) 2025, 11/16/2020 Insurance [facility] [id number] [facility] [id number] [facility] [id number] [facility] [id number] [facility] [id number] Care Teams Belt Glass Sander Relationship Specialty Start Date End Date Sisi Savage MD PCP - General 01/15/20
--- OUTSIDE RECORDS SUMMARY | 2025-03-31 12:29 | XMS_ITS | Encounter Summary ---
Author Organization [employer] [facility] Address [address] [place] [address] Phone Care Team Providers Care Commercial Loan Administrator Name Role Phone Sisi Savage MD Primary Care Provider [phone] Encounter Details Date Type Department Care Team (Late st Contact Info) Description 07/09/2021 Procedure Pass [facility] [address] [facility] [place] [address] Social History Tobacco Use Types Packs/Day Years [...] on filedocumented in this encounter Care Teams Commercial Loan Administrator Relationship Specialty Start Date End Date Sisi Savage MD PCP - General 01/15/20 documented as of this encounter
--- OUTSIDE RECORDS SUMMARY | 2025-03-31 12:29 | XMS_ITS | Encounter Summary ---
Author Organization [facility] Address [address] [place] [address] Phone Care Team Providers Care Machine Grainer Name Role Phone Sisi Savage MD Primary Care Provider [phone] Encounter Details Date Type Department Care Team (Late st Contact Info) Description 07/09/2021 Ancillary Orders [facility] MRI [address] [facility] [place] [address] Bonnie Sanchez MD [address] [facility] [address] [place] [address] Social History Tobacco Use Types Packs/Day Years [...] on filedocumented in this encounter Care Teams Machine Grainer Relationship Specialty Start Date End Date Sisi Savage MD PCP - General 01/15/20 documented as of this encounter
--- OUTSIDE RECORDS SUMMARY | 2025-03-31 12:29 | XMS_ITS | Clinical Summary ---
Author Organization [employer] Address [address] [place] [address] Phone Care Team Providers Care Loading Dock Hand Name Role Phone Tierra Michael M.D., M.D. Primary Care Provider Source Comments NOTE: The information displayed by Care Everywhere is extracted from the complete medical record and may not identify all current or past patient conditions.[facility] Social History Tobacco Use Types Packs/Day Years Used Date Smoking Tobacco: Never Assessed Sex and Gender Information Value Date Recorded Sex Assigned at Not on file Legal Sex Male 9:49 PM EDT Gender Identity Not on file Sexual Orientation Not on file Plan of Treatment Not on file Care Teams Loading Dock Hand Relationship Specialty Start Date End Date Tierra Michael), M.DIsabela [address] [place], [place] PCP - General 11/24/23
== END 2025-03-31 12:36 | disposition home or self-care (01) ==
PROVIDERS: Emergency Provider Emergency Medicine
DX: G40.909 Epilepsy, unspecified, not intractable, without status epilepticus (principal); Z76.0 Encounter for issue of repeat prescription
CPT/HCPCS: 99281